=== PATIENT | female | born 1980 | race Caucasian/White ===

== ENCOUNTER 2017-03-13 10:37 | Emergency (ER) | payer MEDICAID ==
[~2017-03-13] VITALS: Ht 154.9 cm; Wt 77.1 kg
[2017-03-13 13:18] VITALS: BP 106/77
== END 2017-03-13 13:18 | disposition home or self-care (01) ==
LOC: ED 10:37
DX: R51 Headache (principal); R20.0 Anesthesia of skin; H53.149 Visual discomfort, unspecified
CPT/HCPCS: J1885; J2765